=== PATIENT | male | born 1990 | race Caucasian/White ===

== ENCOUNTER 2025-04-28 01:02 | Emergency (ER) | payer OTHER, SELFPAY ==
--- NOTE | ~2025-04-28 | XR_ITS ---
EXAMINATION: XR chest 2V, 04/28/2025 1:41 CDT HISTORY: SOB COMPARISON: No comparisons available. Technique: 2 views obtained. Findings: The lungs are clear, no effusion. No pneumothorax. Heart is normal size. Mediastinal and hilar contours are within normal limits. Bony thorax no acute abnormality. Impression: No acute cardiopulmonary abnormality. Reviewed, dictated and finalized at location A. Impression: No acute cardiopulmonary abnormality.
--- NOTE | 2025-04-28 01:06 | ECG_ITS ---
Test Date: 2025-04-28 01:15:17 Measurements Intervals [place] Rate: 93 P: 67 TX: 173 QRS: 48 QRSD: 85 T: 54 QT: 344 QTc: 428 Interpretive Statements SINUS RHYTHM NONSPECIFIC T-WAVE ABNORMALITY ABNORMAL ECG No previous ECG available for comparison Electronically Signed On 04-28-2025 09:46:56 CDT by Levi Rand M.D.
[2025-04-28 01:07] VITALS: BP 170/100; PULSE 86; RESP 18; TEMP 36.8; O2SAT 100
[2025-04-28 01:29] LABS: Hematocrit 39.9 % (42.0-52.0); Hemoglobin 13.6 g/dL (14.0-18.0); Immature Granulocyte Percent A 0.4 % (0-0.5); Lymphocytes Absolute Auto 3.32 K/mm3 (0.9-3.2); Mean Corpuscular HGB Conc 34.1 g/dl (32-36); Mean Corpuscular Hemoglobin 28.5 pg (26-34); Mean Corpuscular Volume 83.6 fl (80-100); Nucleated Red Blood Cells Absolute Auto 0.000 K/mm3 (0.0-0.012); Nucleated Red Blood Cells Perc 0.0 % (0.0-0.2); Platelet Count Result 228 k/mm3 (150-375); Red Blood Count 4.77 M/mm3 (4.6-6.20); White Blood Count 8.1 K/mm3 (4.5-10.0)
[2025-04-28 01:41] LABS: Alanine Aminotransferase 32 U/L (6-50); Albumin Level 4.7 g/dL (3.5-5.1); Alkaline Phosphatase 69 U/L (38-126); Anion Gap 10 mmol/L (4-12); Aspartate Amino Transferase 26 U/L (17-59); Bilirubin,Total 0.3 mg/dL (0.2-1.3); Blood Urea Nitrogen 24 mg/dL (9-20); Calcium 8.9 mg/dL (8.4-10.2); Carbon Dioxide 25 mmol/L (22-30); Chloride 104 mmol/L (98-107); Estimated CRCL calculation 84 ml/min; Estimated Glomerular Filt Rate > 60; Glucose 113 mg/dL (65-110); Potassium 3.4 mmol/L (3.4-5.0); Sodium 139 mmol/L (137-145); Total Protein 7.7 g/dL (6.3-8.2)
[2025-04-28 01:52] LABS: Troponin I < 0.012 ng/mL (0.000-0.034)
[2025-04-28 03:56] VITALS: PULSE 77
--- OUTSIDE RECORDS SUMMARY | 2025-04-28 05:00 | XMS_ITS | Clinical Summary ---
Author Organization [facility] Address [address] [place] [address] Care Team Providers Care Laboratory Miller Name Role Phone Unknown, Notinfile Primary Care Provider Unavail able Allergies No known active allergies Medications loratadine (CLARITIN) 10 mg tablet Take 10 mg by mouth as needed 9 Active ondansetron ODT (ZOFRAN-ODT) 4 mg disintegrating tablet Take 4 mg by mouth as needed 9 Active naproxen sodium 220 mg capsule Take by mouth Active escitalopram (LEXAPRO) 10 mg tablet Take 10 mg by mouth daily Active sertraline (ZOLOFT) 50 mg tablet TK 1 T PO QD 0 Active Active Problems Problem Noted Date Diagnosed Date Diarrhea 06/11/2019 Overview (06/11/2019): Added automatically from request for surgery [id number] Diarrhea of presumed infectious origin 9 Assessment & Plan (07/17/2019 1:23 PM FURNITURE RENTAL CONSULTANT): Have reviewed with him all the labs and endo and biopsy findings and the fact that all are normal indicating ibs-d. His diet is erratic and no breakfast and he is pretty hi strung. Suggested we begin with hi fiber diet and if that fails consider trying meds. Return prn Assessment & Plan (05/08/2019 2:11 PM CDT): Ending 10 yrs in the and spent 6 mos in [employer] 04/01-10/03. C/o morning urgency with numerous loose stools and also less severe in the afternoon. No nocturnal. Living and eating on the [place]. Brought in labs and blood all normal but stool possible shigella. Will repeat bacterial pathogens, O-P, C Dif and then proceed. 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 Patellar tendinitis 08/20/2015 Surgical History Surgery Date Site/Laterality Comments KNEE SURGERY 08/15/2016 - 08/14/2017 Bilateral KNEE DEBRIDEMENT 10/14/2015 - 11/13/2015 Left left knee debridement KNEE DEBRIDEMENT 06/15/2016 - 07/14/2016 Right rt knee debridement COLONOSCOPY 07/10/2019 Medical History Medical History Date Comments Depression anxiety Chronic diarrhea since 06/2018 Family History Medical History Relation Name Comments Cancer Father Family history of malignant neoplasm - (Added by TW Conv) Hypertension Father Relation Name Status Comments Father Social History Tobacco Use Types Packs/Day Years Used Date Smoking Tobacco: Never Smokeless Tobacco: Never Alcohol Use Standard Drinks/Week Comments Yes 0 (1 standard drink = 0.6 oz pur e alcohol) occasionally PHQ-2 Answer Date Recorded PHQ-2 Score 0 07/17/2019 Personal Safety Answer Date Recorded Getting School Help Needed Not on file 10/27 Sex and Gender Information Value Date Recorded Sex Assigned at Not on file Legal Sex Male 6:45 AM FURNITURE RENTAL CONSULTANT Gender Identity Not on file Sexual Orientation Not on file Obstetrics History Last Filed Vital Signs Vital Sign Reading Time Taken Comments Blood Pressure 130/80 06/22/2020 10:08 AM FURNITURE RENTAL CONSULTANT Pulse 75 06/22/2020 10:09 AM FURNITURE RENTAL CONSULTANT righ t Temperature 36.3 C (97.3 F) 06/22/2020 10:08 AM FURNITURE RENTAL CONSULTANT Respiratory Rate 16 06/22/2020 10:08 AM FURNITURE RENTAL CONSULTANT Oxygen Saturation 97% 06/22/2020 10:09 AM FURNITURE RENTAL CONSULTANT right Inhaled Oxygen Concentration - - Weight 90.7 kg (200 lb) 06/22/2020 10:08 AM FURNITURE RENTAL CONSULTANT Height 182.9 cm (6') 06/22/2020 10:08 AM FURNITURE RENTAL CONSULTANT Body Mass Index 27.12 06/22/2020 10:08 AM FURNITURE RENTAL CONSULTANT Plan of Treatment [place] [address] [facility] CLAIMS Advance Directives For more information, please contact: [phone] * Full Code (Latest Code Status on File) Date Activated Date Inactivated Comments 07/10/2019 7:53 AM 07/10/2019 2:29 PM * Full Code Date Activated Date Inactivated Comments 07/10/2019 7:53 AM 07/10/2019 7:53 AM Care Teams Laboratory Miller Relationship Specialty Start Date End Date Unknown, Notinfile PCP - General 07/10/19
--- OUTSIDE RECORDS SUMMARY | 2025-04-28 05:00 | XMS_ITS | Clinical Summary ---
Author Organization [facility] Address [address] [facility] [address] [facility] [place] [address] Care Team Providers Care Can Capper Name Role Phone Lenard Alves Primary Care Provider [phone] OsmarKvng chavez Shabana PAC Unavailable [phone] Allergies No known active allergies Medications famotidine (PEPCID) 20 MG Tablet Take 20 mg by mouth 2 times daily. Active sertraline (ZOLOFT) 100 MG Tablet Take 100 mg by mouth daily. Active Active Problems No known active problems Family History Medical History Relation Name Comments Cancer Paternal Grandfather Relation Name Status Comments Paternal Grandfather Social History Tobacco Use Types Packs/Day Years Used Date Smoking Tobacco: Never Smokeless Tobacco: Never Alcohol Use Standard Drinks/Week Comments Yes 0 (1 standard drink = 0.6 oz pur e alcohol) occasional Sex and Gender Information Value Date Recorded Sex Assigned at Not on file Legal Sex Male 1:41 PM CDT Gender Identity Not on file Sexual Orientation Not on file Last Filed Vital Signs Vital Sign Reading Time Taken Comments Blood Pressure 138/78 01/24/2024 1:00 PM CDT Pulse 75 01/24/2024 1:00 PM CDT Temperature 36.1 C (97 F) 01/24/2024 1:00 PM CDT Respiratory Rate 14 01/24/2024 1:00 PM CDT Oxygen Saturation 98% 01/24/2024 1:00 PM CDT Inhaled Oxygen Concentration - - Weight 96.2 kg (212 lb) 01/24/2024 1:00 PM CDT Height 182.9 cm (6') 01/24/2024 1:00 PM CDT Body Mass Index 28.75 01/24/2024 1:00 PM CDT Plan of Treatment Health Maintenance Due Date Last Done Comments Hepatitis C Virus (HCV) Screening 1989 Hepatitis B Immunization (1 of 3 - 19+ 3-dose series) 2008 Human Papillomavirus (HPV) Immunization (3 - Male 3-dose series) 08/13/2014 05/21/2014, 01/08/2014 Influenza Immunization (#1) 04/15/202506/16, 07/23/2022, 06/30/2021, Additional history exists SARS-COV-2 Immunization ( season) 2025 07/23/2022, 10/03/2020, 09/04/2020 Respiratory Syncytial Virus (RSV) Immunization (Adult) (1 - 1-dose 75+ series) 2064 Meningococcal Immunization (ACWY) Aged Out 05/30/2009 No longer eligible based on patient's age to complete this topic TdaP Immunization Completed 05/30/2009 Pneumococcal Immunization Combined Aged Out No longer eligible based on patient's age to complete this topic Rotavirus Immunization Aged Out No lo nger eligible based on patient's age to complete this topic Insurance [facility] Care Teams Can Capper Relationship Specialty Start Date End Date Long Lenard [address] [id number] PCP - General Family Medicine 01/17/24 Kvng Prasad PAC [address] [id number] Physician Locker Room Supervisor Physician Locker Room Supervisor 01/17/24
--- OUTSIDE RECORDS SUMMARY | 2025-04-28 05:00 | XMS_ITS | Clinical Summary ---
Author Organization [facility] Address [address] [place] [address] Care Team Providers Care Violin Repairer Name Role Phone Unavailable Primary Care Provider Unavailabl e Social History Tobacco Use Types Packs/Day Years Used Date Smoking Tobacco: Never Assessed Sex and Gender Information Value Date Recorded Sex Assigned at Not on file Legal Sex Male 8:36 PM CDT Gender Identity Not on file Sexual Orientation Not on file Plan of Treatment Health Maintenance Due Date Last Done Comments Annual Physical 1992 Hepatitis C 2007 DTaP, Tdap and Td Vaccines ( 1 - Tdap) 2008 Hepatitis B Vaccines (1 of 3 - 19+ 3-dose series) 2008 HPV Vaccines (1 - 3-dose SCD M series) 2016 COVID-19 Vaccine (1 - 2023-2 5 season) 2025 Meningococcal B Vaccine Aged Out No l onger eligible based on patient's age to complete this topic Meningococcal Vaccine Aged Out No quang jluis eligible based on patient's age to complete this topic Pneumococcal Vaccine: Pediat rics (0 to 5 Years) and At-Risk Patients (6 to 49 Years) Aged Out No longer eligible b ased on patient's age to complete this topic RSV Immunizations Under 20 Months Aged Out No longer eligible based on patient's age to complete this topic
--- NOTE | 2025-04-28 05:09 | ED_ITS ---
HPI - General Adult General Chief complaint: Unspecified Stated complaint: SOB, heart feels odd. lightheaded Time Seen by Provider: 04/28/25 04:12 History of Present Illness HPI narrative: Patient is a 35-year-old male who presents emergency department this evening complaining of heart palpitations that occurred while he was trying to go to sleep. Patient states that he felt like his heart was beating heavy. Patient states that during this episode he felt slightly short of breath. States the symptoms have now resolved. Patient was noted to have an elevated blood pressure in triage and when asked about this he states that he was told that he may have hypertension but was never worked up. Denies any active chest pain. No additional symptoms or concerns at this time. Related Data Allergies Allergy/AdvReac Type Severity Reaction Status Date / Time No Known Allergies Allergy Verified 04/28/25 01:10 Review of Systems 2 Review of Systems: All systems are reviewed and are negative unless stated otherwise in the HPI. Exam 2 Narrative: General: Alert, awake, afebrile, in no acute distress. HEENT: PERRL, no rhinorrhea, no post nasal drip, oropharynx clear. Neck: Trachea midline, no JVD, no lymphadenopathy. Cardiovascular: Regular rate and rhythm, no murmurs, rubs or gallops, no peripheral edema. Respiratory: Clear to auscultation bilaterally, no tachypnea, no wheezing, no rhonchi, no rubs, no respiratory distress. Abdomen: Soft, nontender, nondistended, no rebound, no guarding, no peritoneal signs. Musculoskeletal: No joint swelling or deformity, normal muscle tone. Skin: No rashes or petechia, no signs of infection. Psychiatric: Alert and oriented, normal behavior and judgment for situation. Neurological: Alert and oriented to person, place, and time. Follows all commands. No focal deficits, speech is clear and fluent. Course Vital Signs Vital signs: Vital Signs Temperature 98.2 F 04/28/25 01:07 Pulse Rate 86 04/28/25 01:07 Respiratory Rate 18 04/28/25 01:07 Blood Pressure 170/100 H 04/28/25 01:07 Pulse Oximetry 100 04/28/25 01:07 Oxygen Delivery Room Air 04/28/25 01:07 Temperature 98.2 F 04/28/25 01:07 Pulse Rate 77 04/28/25 03:56 Respiratory Rate 18 04/28/25 01:07 Blood Pressure 170/100 H 04/28/25 01:07 Pulse Oximetry 100 04/28/25 01:07 Oxygen Delivery Room Air 04/28/25 01:07 Medical Decision Making MDM Narrative Medical decision making narrative: The patient was evaluated by myself in the emergency department. History is obtained from patient who is an independent historian and physical exam was performed. External medical records were reviewed at this time. IV was established and pertinent tests were ordered. EKG was obtained which revealed sinus rhythm rate of 93 beats per minute otherwise no evidence of arrhythmia or acute ischemia. EKG was independently interpreted by me and is currently pending official cardiology read. Laboratory results obtained revealing no acute process. Troponin negative. Imaging studies obtained included CXR which was independently interpreted by me revealing no acute process, which is pending final radiology interpretation. Differential diagnosis considerations include arrhythmia, electrolyte derangements, acute viral syndrome, hypertensive urgency versus emergency, acute stress reaction, anxiety, dehydration. Comorbidities impacting this visit include none. I have evaluated and discussed social determinants of health with the patient that could potentially impact subsequent diagnosis and treatment plans. On repeat assessment of the patient, reevaluation revealed that the patient is doing well and is in no acute distress. Patient symptoms have improved since he arrived to our emergency department. Repeat vital signs were all reviewed and noted to be stable with current blood pressure of 156/86 mmHg. Patient was not administered any antihypertensive in the emergency department and was informed that he needs to monitor this closely as he may need to be placed on blood pressure medications if his blood pressure is persistently elevated. Differential diagnosis and treatment plan were discussed with the patient at bedside. Patient agrees with discussion and after shared medical decision making agrees with discharge. All questions were answered to the patient's satisfaction. Patient will follow up with his PCP in 3-5 days. He was also provided with a Cardiology referral instructed to call to set up a follow-up appointment if he continues to have these episodes of palpitations he may need to be fitted for a Holter monitor. Patient was provided with strict return precautions and instructed to return to the emergency department if any new or worsening symptoms develop. The patient was discharged in stable condition. Vital Signs Vital Signs: Vital Signs Temperature 98.2 F 04/28/25 01:07 Pulse Rate 86 04/28/25 01:07 Respiratory Rate 18 04/28/25 01:07 Blood Pressure 170/100 H 04/28/25 01:07 Pulse Oximetry 100 04/28/25 01:07 Oxygen Delivery Room Air 04/28/25 01:07 Temperature 98.2 F 04/28/25 01:07 Pulse Rate 77 04/28/25 03:56 Respiratory Rate 18 04/28/25 01:07 Blood Pressure 170/100 H 04/28/25 01:07 Pulse Oximetry 100 04/28/25 01:07 Oxygen Delivery Room Air 04/28/25 01:07 Lab Data 04/28/25 01:22 04/28/25 01:22 Labs: Lab Results 04/28/25 Range/Units 01:22 WBC 8.1 (4.5-10.0) K/mm3 RBC 4.77 (4.6-6.20) M/mm3 Hgb 13.6 L (14.0-18.0) g/dL Hct 39.9 L (42.0-52.0) % MCV 83.6 (80-100) fl MCH 28.5 (26-34) pg MCHC 34.1 (32-36) g/dl RDW 12.9 (11.5-14.5) % Plt Count 228 (150-375) k/mm3 MPV 10.4 (7.4-10.4) fl Immature Gran % (Auto) 0.4 (0-0.5) % Neut % (Auto) 47.4 (45.5-73.1) % Lymph % (Auto) 41.0 (18.3-44.2) % Richardson % (Auto) 6.7 (2.6-8.5) % Eos % (Auto) 4.0 (0-4.4) % Baso % (Auto) 0.5 (0.2-1.2) % Lymph # (Auto) 3.32 H (0.9-3.2) K/mm3 Richardson # (Auto) 0.5 (0.1-0.6) K/mm3 Eos # (Auto) 0.3 (0-0.3) K/mm3 Baso # (Auto) 0.0 (0.0-0.1) K/mm3 Abs Immat Gran (auto) 0.03 (0.00-0.031) K/mm3 Absolute Neuts (auto) 3.9 (1.3-6.7) K/mm3 Absolute Nucleated RBC 0.000 (0.0-0.012) K/mm3 Nucleated RBC % 0.0 (0.0-0.2) % Sodium 139 (137-145) mmol/L Potassium 3.4 (3.4-5.0) mmol/L Chloride 104 (98-107) mmol/L Carbon Dioxide 25 (22-30) mmol/L Anion Gap 10 (4-12) mmol/L BUN 24 H (9-20) mg/dL Creatinine 1.19 (0.7-1.3) mg/dL Estim Creat Clear Calc 84 ml/min Estimated GFR > 60 (59 - ) Glucose 113 H (65-110) mg/dL Calcium 8.9 (8.4-10.2) mg/dL Total Bilirubin 0.3 (0.2-1.3) mg/dL AST 26 (17-59) U/L ALT 32 (6-50) U/L Alkaline Phosphatase 69 (38-126) U/L Troponin I < 0.012 (0.000-0.034) ng/mL Total Protein 7.7 (6.3-8.2) g/dL Albumin 4.7 (3.5-5.1) g/dL Discharge Plan Discharge Clinical Impression: Heart palpitations, Hypertension Patient Disposition: Home Condition: Improved Instructions: Antibiotic Form, Heart Palpitations (DC), Hypertension (ED) Additional Instructions: Please follow-up with your family doctor within the next 3-5 days. Return to the ED if any new or worsening symptoms develop. Your provided with a Cardiology referral instructed to call to set up a follow-up appointment regarding your palpitations. You also instructed to keep a blood pressure log and to monitor your blood pressure daily at as he may be developing hypertension and this needs to be addressed with your primary care physician. Patient Language: Arabic Follow-up/Referrals: Levi Rand MD [Physician, Cardiology] - 3 Days Lenard Alves MD [Primary Care Provider, Family Practice] - 1 Week Time of Disposition: 05:11
[2025-04-28 05:19] VITALS: BP 148/78; PULSE 87; RESP 18; O2SAT 99
== END 2025-04-28 05:20 | disposition home or self-care (01) ==
PROVIDERS: Emergency Provider Emergency Medicine; PCP Emergency Medicine
DX: R00.2 Palpitations (principal); I10 Essential (primary) hypertension; R94.31 Abnormal electrocardiogram [ECG] [EKG]
CPT/HCPCS: 36415; 71046; 80053; 84484; 85025; 93005; 99284

== ENCOUNTER 2025-05-13 07:31 | Outpatient (CLI) | payer OTHER, SELFPAY ==
--- NOTE | ~2025-05-13 | NM_ITS ---
EXAM: NM gastric emptying study DATE: 05/13/2025 12:43 INDICATION: Gastroesophageal reflux disease without esophagitis TECHNIQUE: A gastric emptying study was performed using the methodology of Bijan ELAM, et al. J Nucl Med 2007; 48:568-572. The patient was given a meal consisting of 2 scrambled eggs labeled with 1.1 mCi Tc-99m sulfur colloid, 2 slices of toast, two packages of jam, and approximately 120 mL of water. Simultaneous anterior and posterior 1-min images of the abdomen were obtained with the patient supine at multiple time points over a total period of 4 hours. The geometric mean of anterior and posterior views was determined, and the percentage retention was calculated for each time point. COMPARISON: None. FINDINGS: Gastric retention of the radiotracer-labeled meal was 91%, 80%, and 20% at the 1-hour, 2-hour, and 4-hour time points, respectively. With this technique, apparent rapid gastric emptying is suggested by <30% gastric retention at 1 hour. Delayed gastric emptying is defined by gastric retention of >90% at 1 hour, >60% retention at 2 hours, or >10% retention at 4 hours. IMPRESSION: 1. Delayed gastric emptying. Reviewed, dictated and finalized at location A.
--- OUTSIDE RECORDS SUMMARY | 2025-05-13 07:34 | XMS_ITS | Clinical Summary ---
Author Organization [facility] Address [address] [place] [address] Care Team Providers Care Manager Fire Name Role Phone Unavailable Primary Care Provider [...]
--- OUTSIDE RECORDS SUMMARY | 2025-05-13 07:34 | XMS_ITS | Clinical Summary ---
Author Organization [facility] Address [address] [place] [address] Care Team Providers Care Sponge Hooker Name Role Phone Unknown, Notinfile Primary Care [...] (06/11/2019): Added automatically from request for surgery [id number] Diarrhea of presumed infectious origin 9 Assessment & Plan (07/17/2019 1:23 PM DEPARTMENT TRAFFIC FREIGHT ROUTER): Have reviewed with him all the labs [...] in the and spent 6 mos in [employer] 04/01-10/03. C/o morning urgency with numerous loose stools and also less severe in the afternoon. No nocturnal. Living and eating on the [place]. Brought in labs and blood all normal [...] on file Legal Sex Male 6:45 AM DEPARTMENT TRAFFIC FREIGHT ROUTER Gender Identity Not on file Sexual Orientation Not on file Obstetrics History Last Filed Vital Signs Vital Sign Reading Time Taken Comments Blood Pressure 130/80 06/22/2020 10:08 AM DEPARTMENT TRAFFIC FREIGHT ROUTER Pulse 75 06/22/2020 10:09 AM DEPARTMENT TRAFFIC FREIGHT ROUTER righ t Temperature 36.3 C (97.3 F) 06/22/2020 10:08 AM DEPARTMENT TRAFFIC FREIGHT ROUTER Respiratory Rate 16 06/22/2020 10:08 AM DEPARTMENT TRAFFIC FREIGHT ROUTER Oxygen Saturation 97% 06/22/2020 10:09 AM DEPARTMENT TRAFFIC FREIGHT ROUTER right Inhaled Oxygen Concentration - - Weight 90.7 kg (200 lb) 06/22/2020 10:08 AM DEPARTMENT TRAFFIC FREIGHT ROUTER Height 182.9 cm (6') 06/22/2020 10:08 AM DEPARTMENT TRAFFIC FREIGHT ROUTER Body Mass Index 27.12 06/22/2020 10:08 AM DEPARTMENT TRAFFIC FREIGHT ROUTER Plan of Treatment [place] [address] [facility] CLAIMS Advance Directives For more information, please contact: [phone] * Full Code (Latest Code Status on File) Date Activated Date Inactivated Comments 07/10/2019 7:53 AM 07/10/2019 2:29 PM * Full Code Date Activated Date Inactivated Comments 07/10/2019 7:53 AM 07/10/2019 7:53 AM Care Teams Sponge Hooker Relationship Specialty Start Date End Date Unknown, Notinfile PCP - General 07/10/19
--- OUTSIDE RECORDS SUMMARY | 2025-05-13 07:35 | XMS_ITS | Clinical Summary ---
Author Organization [facility] Address [address] [facility] [address] [facility] [place] [address] Care Team Providers Care Pediatric Neuropsychologist Name Role Phone Lenard Alves Primary Care Provider [phone] OsmarKvng chavez Shabana PAC Unavailable [phone] Allergies No known active allergies Medications famotidine [...] patient's age to complete this topic Insurance [facility] Care Teams Pediatric Neuropsychologist Relationship Specialty Start Date End Date Long Lenard [address] [address] PCP - General Family Medicine 01/17/24 Kvng Prasad PAC [address] [id number] Physician Package Car Driver Physician Package Car Driver 01/17/24
== END 2025-05-13 07:32 | disposition home or self-care (01) ==
PROVIDERS: PCP Emergency Medicine; Visit Provider Emergency Medicine
DX: K21.9 Gastro-esophageal reflux disease without esophagitis (principal); K30 Functional dyspepsia
CPT/HCPCS: 78264; A9541

== ENCOUNTER 2025-05-19 16:03 | Emergency (ER) | payer OTHER, SELFPAY ==
--- NOTE | ~2025-05-19 | CT_ITS ---
Edward Rogel EXAMINATION: CT abdomen pelvis w con COMPARISON: None HISTORY: epigastric pain TECHNIQUE: Axial images were obtained through the abdomen, pelvis post administration of IV contrast. Oral contrast was also administered. Coronal reconstruction images were obtained from the axial views. CT scan performed using dose optimization techniques including the following automated exposure control; adjustment of mA and/or kV; use of iterative reconstruction technique. Automatic exposure control was used to reduce radiation dose. Permanent radiation dose record is archived to PACS. FINDINGS: CT abdomen: LUNG BASES: The lung bases are clear. The visualized portions of the heart and pericardium are unremarkable. LIVER: Mild hepatic steatosis. SPLEEN: Unremarkable. KIDNEYS: Right Kidney: Unremarkable. No calculi. No hydronephrosis. Left Kidney: Unremarkable. No calculi. No hydronephrosis ADRENAL GLANDS: Unremarkable. PANCREAS: Unremarkable. GALLBLADDER/BILIARY: Unremarkable. No biliary dilatation. STOMACH AND ESOPHAGUS: Small hiatal hernia. BOWEL/MESENTERY: Moderate fecal content, no colitis or diverticulitis. Appendix normal. Mesentery normal. No dilated small bowel loops. ADENOPATHY/RETROPERITONEUM: No lymphadenopathy. AORTA/VASCULATURE: Normal caliber aorta. FREE FLUID OR FREE AIR: No free fluid.. CT pelvis: SOLID ORGANS/REPRODUCTIVE: Unremarkable. BLADDER: Mild circumferential thickening noted of the bladder wall. OSSEOUS STRUCTURES: No acute osseous abnormality.No suspicious lesions. OVERLYING SOFT TISSUES: There is small fat-containing umbilical hernia. IMPRESSION: 1. Mild cystitis Reviewed, dictated and finalized at location P. IMPRESSION: 1. Mild cystitis
[2025-05-19 16:05] VITALS: BP 150/99; PULSE 77; RESP 18; TEMP 36.8; O2SAT 98
--- OUTSIDE RECORDS SUMMARY | 2025-05-19 16:05 | XMS_ITS | Clinical Summary ---
Author Organization [facility] Address [address] [facility] [address] [facility] [place] [address] Care Team Providers Care Welder Setter Electron Beam Machine Name Role Phone Lenard Alves Primary Care Provider [phone] OsmarKvng chavez Shabana PAC Unavailable [phone] Allergies No known active allergies Medications famotidine [...] patient's age to complete this topic Insurance [facility] Care Teams Welder Setter Electron Beam Machine Relationship Specialty Start Date End Date Long Lenard [address] [address] PCP - General Family Medicine 01/17/24 Kvng Prasad PAC [address] [id number] Physician Systems Software Developer Physician Systems Software Developer 01/17/24
--- OUTSIDE RECORDS SUMMARY | 2025-05-19 16:05 | XMS_ITS | Clinical Summary ---
Author Organization [facility] Address [address] [place] [address] Care Team Providers Care Cylinder Head Assembler Name Role Phone Unavailable Primary Care Provider [...]
--- OUTSIDE RECORDS SUMMARY | 2025-05-19 16:54 | XMS_ITS | Clinical Summary ---
Author Organization [facility] Address [address] [place] [address] Care Team Providers Care Residential Counselor Name Role Phone Unavailable Primary Care Provider [...]
--- OUTSIDE RECORDS SUMMARY | 2025-05-19 16:54 | XMS_ITS | Clinical Summary ---
Author Organization [facility] Address [address] [facility] [address] [facility] [place] [address] Care Team Providers Care Paint Supervisor Name Role Phone Lenard Alves Primary Care Provider OsmarKvng chavez Shabana PAC Unavailable [phone] Allergies No known active allergies Medications famotidine [...] patient's age to complete this topic Insurance [facility] Care Teams Paint Supervisor Relationship Specialty Start Date End Date Long Lenard [address] [address] PCP - General Family Medicine 01/17/24 Kvng Prasad PAC [address] [address] Physician Mechanic Industrial Truck Physician Mechanic Industrial Truck 01/17/24
[2025-05-19 17:04] LABS: Hematocrit 39.9 % (42.0-52.0); Hemoglobin 13.8 g/dL (14.0-18.0); Immature Granulocyte Percent A 0.5 % (0-0.5); Lymphocytes Absolute Auto 1.81 K/mm3 (0.9-3.2); Mean Corpuscular HGB Conc 34.6 g/dl (32-36); Mean Corpuscular Hemoglobin 28.3 pg (26-34); Mean Corpuscular Volume 81.9 fl (80-100); Nucleated Red Blood Cells Absolute Auto 0.000 K/mm3 (0.0-0.012); Nucleated Red Blood Cells Perc 0.0 % (0.0-0.2); Platelet Count Result 258 k/mm3 (150-375); Red Blood Count 4.87 M/mm3 (4.6-6.20); White Blood Count 8.3 K/mm3 (4.5-10.0)
[2025-05-19] MEDS: SODIUM CHLORIDE 0.9% IV 1,000 ML 999 ML IV CONT (17:10)
[2025-05-19] MEDS: ONDANSETRON INJ 4 MG/2 ML VIAL IV PUSH (17:10)
[2025-05-19 17:18] LABS: Add Urine Microscopic? YES; Appearance Urine Clear (Clear); Glucose Urine UA Negative (Negative); Leukocyte Esterase Ur Trace LEU/UL (Negative); Nitrate Urine Negative (Negative); Non Pathogenic Casts 0-2; Specific Grav Ur 1.017 (1.001-1.035)
[2025-05-19 17:19] LABS: Alanine Aminotransferase 26 U/L (6-50); Albumin Level 4.8 g/dL (3.5-5.1); Alkaline Phosphatase 66 U/L (38-126); Anion Gap 12 mmol/L (4-12); Aspartate Amino Transferase 22 U/L (17-59); Bilirubin,Total 0.5 mg/dL (0.2-1.3); Blood Urea Nitrogen 15 mg/dL (9-20); Calcium 9.4 mg/dL (8.4-10.2); Carbon Dioxide 23 mmol/L (22-30); Chloride 103 mmol/L (98-107); Estimated CRCL calculation 81 ml/min; Estimated Glomerular Filt Rate > 60; Glucose 112 mg/dL (65-110); Lipase 163 U/L (23-300); Potassium 3.4 mmol/L (3.4-5.0); Sodium 138 mmol/L (137-145); Total Protein 7.9 g/dL (6.3-8.2)
--- NOTE | 2025-05-19 18:12 | ED.ABDPAIN ---
HPI - Abdominal Pain General Chief Complaint: Abdominal Pain Stated Complaint: NV, abd pain, not able to keep food down Time Seen by Provider: 05/19/25 16:49 History of Present Illness HPI narrative: Patient is a 35-year-old male who presents ER with nausea vomiting as well as epigastric pain. Reports has been ongoing for 2 and half weeks. He was seen by his PCP and had a gastric emptying study that showed delayed gastric emptying. He is now scheduled to follow-up with GI and hopefully get an endoscopy. Reports he has early satiety. He has been taking Protonix and that has actually began to improve his symptoms but he still gets nauseous when he eats and will vomit. Reports a 12 lb weight loss. Related Data Allergies Allergy/AdvReac Type Severity Reaction Status Date / Time No Known Allergies Allergy Verified 05/19/25 16:56 Review of Systems Review of Systems: All systems reviewed & are unremarkable except as noted in HPI and below Constitutional: Constitutional: Reports no additional constitutional complaints ENT: Reports system reviewed and no additional complaints, except as documented Cardiovascular: Cardiovascular: Reports no additional cardiovascular complaints Respiratory: Respiratory: Reports no additional respiratory complaints Gastrointestinal: Gastrointestinal: Reports no additional gastrointestinal complaints [facility] Past Medical History Medical History (Updated 05/19/25 @ 19:36 by Julio Jennings MD) Healthy adult male Surgical History Surgical History (Updated 05/19/25 @ 18:13 by Julio Jennings MD) No history of previous surgery Exam Narrative: GENERAL: Well-appearing, well-nourished, and in no acute distress. HEAD: Normocephalic, atraumatic. ENT: Mucous membranes moist. CHEST: Clear to auscultation. No respiratory distress. HEART: Regular rate and rhythm. Normal peripheral pulses. ABDOMEN: Soft, nontender, nondistended. EXTREMITIES: Normal range of motion. No edema. SKIN: Warm, dry, no rash. NEURO: Alert and oriented x3. PSYCH: Normal mood and affect. Course Course Emergency Course: Patient resting comfortably. Hydrated. Discussed normal CBC/CMP/UA as well as normal CT scan. The CT did reports cystitis but patient has no symptoms with clear urine so it is essentially negative imaged and is likely showing a decompressed bladder. Vital Signs Vital signs: Vital Signs Temperature 98.3 F 05/19/25 16:05 Pulse Rate 77 05/19/25 16:05 Respiratory Rate 18 05/19/25 16:05 Blood Pressure 150/99 H 05/19/25 16:05 Pulse Oximetry 98 05/19/25 16:05 Oxygen Delivery Room Air 05/19/25 16:05 Temperature 98.3 F 05/19/25 16:05 Pulse Rate 77 05/19/25 16:05 Respiratory Rate 18 05/19/25 16:05 Blood Pressure 150/99 H 05/19/25 16:05 Pulse Oximetry 98 05/19/25 16:05 Oxygen Delivery Room Air 05/19/25 16:05 MDM - Abdominal Pain Lab Data 05/19/25 16:58 05/19/25 16:58 Labs: Lab Results 05/19/25 05/19/25 Range/Units 16:58 17:03 WBC 8.3 (4.5-10.0) K/mm3 RBC 4.87 (4.6-6.20) M/mm3 Hgb 13.8 L (14.0-18.0) g/dL Hct 39.9 L (42.0-52.0) % MCV 81.9 (80-100) fl MCH 28.3 (26-34) pg MCHC 34.6 (32-36) g/dl RDW 12.5 (11.5-14.5) % Plt Count 258 (150-375) k/mm3 MPV 10.4 (7.4-10.4) fl Immature Gran % (Auto) 0.5 (0-0.5) % Neut % (Auto) 69.5 (45.5-73.1) % Lymph % (Auto) 21.8 (18.3-44.2) % Dodge % (Auto) 5.5 (2.6-8.5) % Eos % (Auto) 2.1 (0-4.4) % Baso % (Auto) 0.6 (0.2-1.2) % Lymph # (Auto) 1.81 (0.9-3.2) K/mm3 Dodge # (Auto) 0.5 (0.1-0.6) K/mm3 Eos # (Auto) 0.2 (0-0.3) K/mm3 Baso # (Auto) 0.1 (0.0-0.1) K/mm3 Abs Immat Gran (auto) 0.04 H (0.00-0.031) K/mm3 Absolute Neuts (auto) 5.8 (1.3-6.7) K/mm3 Absolute Nucleated RBC 0.000 (0.0-0.012) K/mm3 Nucleated RBC % 0.0 (0.0-0.2) % Sodium 138 (137-145) mmol/L Potassium 3.4 (3.4-5.0) mmol/L Chloride 103 (98-107) mmol/L Carbon Dioxide 23 (22-30) mmol/L Anion Gap 12 (4-12) mmol/L BUN 15 D (9-20) mg/dL Creatinine 1.23 (0.7-1.3) mg/dL Estim Creat Clear Calc 81 ml/min Estimated GFR > 60 (59 - ) Glucose 112 H (65-110) mg/dL Calcium 9.4 (8.4-10.2) mg/dL Total Bilirubin 0.5 (0.2-1.3) mg/dL AST 22 (17-59) U/L ALT 26 (6-50) U/L Alkaline Phosphatase 66 (38-126) U/L Total Protein 7.9 (6.3-8.2) g/dL Albumin 4.8 (3.5-5.1) g/dL Lipase 163 (23-300) U/L Urine Color Yellow (Yellow) Urine Appearance Clear (Clear) Urine pH 5.5 (5.0-9.0) Ur Specific Leon 1.017 (1.001-1.035) Urine Protein Negative (Negative) mg/dL Urine Glucose (UA) Negative (Negative) mg/dL Urine Ketones Negative (Negative) mg/dL Ur Blood (Man) Negative (Negative) Urine Nitrate Negative (Negative) Urine Bilirubin Negative (Negative) Urine Urobilinogen 0.2 (<2.0) mg/dL Leukocyte Esterase Rfl Trace H (Negative) MICHELLE/UL Urine RBC 0-2 (0-2) /hpf Urine WBC 0-5 (0-3) /hpf Ur Squamous Epith Cells None seen (Few) /hpf Urine Bacteria None seen /hpf Urine Casts 0-2 Imaging Data Radiologist's impression: ITS Impressions Abdomen/Pelvis CT 05/19/25 18:23 IMPRESSION: 1. Mild cystitis Discharge Plan Discharge Clinical Impression: Gastroparesis Patient Disposition: Home Condition: Stable Instructions: Gastroparesis (ED) Additional Instructions: Return to the emergency department if you develop severe abdominal pain, severe nausea and vomiting to the point where you are unable to keep down fluids, if you develop chest pain or difficulty breathing, blood in your stool, dizziness or fainting, or if you develop any other new or concerning symptoms as these could be signs of more serious medical illness. Try to stay well hydrated. Patient Language: Turkmen Prescriptions: New metoclopramide HCl 10 mg tablet 10 mg PO Q6H PRN (Reason: nausea and vomiting) Qty: 14 0RF Follow-up/Referrals: Lenard Alves MD [Primary Care Provider, Family Practice] - 1 Week
[2025-05-19 19:47] VITALS: BP 134/87; PULSE 70; RESP 15; O2SAT 99
== END 2025-05-19 19:48 | disposition home or self-care (01) ==
PROVIDERS: Emergency Provider Emergency Medicine; PCP Emergency Medicine
DX: K31.84 Gastroparesis (principal)
CPT/HCPCS: 36415; 74177; 80053; 81001; 83690; 85025; 96361; 96374; 99284; J2405; J7030; Q9967

== ENCOUNTER 2025-05-30 09:37 | Outpatient (CLI) | payer OTHER, SELFPAY ==
[2025-05-30 10:35] LABS: Hematocrit 40.5 % (42.0-52.0); Hemoglobin 13.9 g/dL (14.0-18.0); Mean Corpuscular HGB Conc 34.3 g/dl (32-36); Mean Corpuscular Hemoglobin 28.4 pg (26-34); Mean Corpuscular Volume 82.8 fl (80-100); Platelet Count Result 243 k/mm3 (150-375); Red Blood Count 4.89 M/mm3 (4.6-6.20); White Blood Count 5.0 K/mm3 (4.5-10.0)
--- OUTSIDE RECORDS SUMMARY | 2025-05-30 10:39 | XMS_ITS | Clinical Summary ---
Author Organization [facility] Address [address] [place] [address] Care Team Providers Care Physician In Private Practice Name Role Phone Unavailable Primary Care Provider [...] Vaccine (1 - 2023-2 5 season) 2025 Influenza Adult (#1) 2025 Meningococcal B Vaccine Aged Out No [...]
--- OUTSIDE RECORDS SUMMARY | 2025-05-30 10:39 | XMS_ITS | Clinical Summary ---
Author Organization [facility] Address [address] [place] [address] Care Team Providers Care Tester Food Products Name Role Phone Unknown, Notinfile Primary Care [...] (06/11/2019): Added automatically from request for surgery [id number] Diarrhea of presumed infectious origin 9 Assessment & Plan (07/17/2019 1:23 PM LUNG GUN OPERATOR): Have reviewed with him all the labs [...] in the and spent 6 mos in [employer] 04/01-10/03. C/o morning urgency with numerous loose stools and also less severe in the afternoon. No nocturnal. Living and eating on the [employer]. Brought in labs and blood all normal [...] on file Legal Sex Male 6:45 AM LUNG GUN OPERATOR Gender Identity Not on file Sexual Orientation Not on file Obstetrics History Last Filed Vital Signs Vital Sign Reading Time Taken Comments Blood Pressure 130/80 06/22/2020 10:08 AM LUNG GUN OPERATOR Pulse 75 06/22/2020 10:09 AM LUNG GUN OPERATOR righ t Temperature 36.3 C (97.3 F) 06/22/2020 10:08 AM LUNG GUN OPERATOR Respiratory Rate 16 06/22/2020 10:08 AM LUNG GUN OPERATOR Oxygen Saturation 97% 06/22/2020 10:09 AM LUNG GUN OPERATOR right Inhaled Oxygen Concentration - - Weight 90.7 kg (200 lb) 06/22/2020 10:08 AM LUNG GUN OPERATOR Height 182.9 cm (6') 06/22/2020 10:08 AM LUNG GUN OPERATOR Body Mass Index 27.12 06/22/2020 10:08 AM LUNG GUN OPERATOR Plan of Treatment [place] [address] [facility] HMO/PPO Address: [address] [address] [place] [address] [facility] CLAIMS Advance Directives For more information, please contact: [phone] * Full Code (Latest Code Status on File) Date Activated Date Inactivated Comments 07/10/2019 7:53 AM 07/10/2019 2:29 PM * Full Code Date Activated Date Inactivated Comments 07/10/2019 7:53 AM 07/10/2019 7:53 AM Care Teams Tester Food Products Relationship Specialty Start Date End Date Unknown, Notinfile PCP - General 07/10/19
--- OUTSIDE RECORDS SUMMARY | 2025-05-30 10:39 | XMS_ITS | Clinical Summary ---
Author Organization [facility] Address [address] [facility] [address] [facility] [place] [address] Care Team Providers Care Wellness Guide Name Role Phone Lenard Alves Primary Care Provider [phone] OsmarKvng chavez Shabana PAC Unavailable [phone] Allergies No known active allergies Medications famotidine [...] patient's age to complete this topic Insurance [facility] Care Teams Wellness Guide Relationship Specialty Start Date End Date Long Lenard [address] [address] PCP - General Family Medicine 01/17/24 Kvng Prasad PAC [address] [address] Physician Business Transformation Analyst Physician Business Transformation Analyst 01/17/24
[2025-05-30 10:53] LABS: CRP < 0.5 mg/dL (<1.0)
[2025-05-30 19:04] LABS: Iron 59 ug/dL (49-181)
[2025-05-30 19:17] LABS: Percent Iron Saturation 20 % (20-50)
[2025-05-30 19:46] LABS: Thyroid Stimulating Hormone Reflex 0.852 uIU/mL (0.465-4.68)
[2025-05-30 19:48] LABS: Ferritin 204.00 ng/mL (17.9-464)
[2025-05-30 21:16] LABS: Vitamin B12 358.0 pg/mL (239-931)
[2025-05-31 18:08] LABS: Deamidated Gliadin Abs, IgA 5 units (0-19); Deamidated Gliadin Abs, IgG 2 units (0-19); Immunoglobulin A, Qn 194 mg/dL (90-386)
== END 2025-05-30 09:38 | disposition home or self-care (01) ==
LOC: ANHLAB 09:38
PROVIDERS: PCP Emergency Medicine; Visit Provider Nurse Practitioner
DX: K52.9 Noninfective gastroenteritis and colitis, unspecified (principal); D64.9 Anemia, unspecified; K31.84 Gastroparesis; R10.9 Unspecified abdominal pain
CPT/HCPCS: 36415; 82607; 82728; 82746; 82784; 83540; 83550; 84443; 85027; 86140; 86231; 86258

== ENCOUNTER 2025-06-15 09:02 | Day surgery (SDC) | payer OTHER, SELFPAY ==
[2025-06-03 09:28] VITALS: BMI 27.6
[2025-06-04 10:17] VITALS: BMI 27.6
--- OUTSIDE RECORDS SUMMARY | 2025-06-15 09:07 | XMS_ITS | Clinical Summary ---
Author Organization [facility] Address [address] [facility] [address] [facility] [place] [address] Care Team Providers Care Convalescent Sitter Name Role Phone Lenard Alves Primary Care Provider OsmarKvng chavez Shabana PAC Unavailable [phone] Allergies No known active allergies Medications famotidine [...] patient's age to complete this topic Insurance [facility] Care Teams Convalescent Sitter Relationship Specialty Start Date End Date Long Lenard [address] [address] PCP - General Family Medicine 01/17/24 Kvng Prasad PAC [address] [address] Physician Edgerman Physician Edgerman 01/17/24
--- OUTSIDE RECORDS SUMMARY | 2025-06-15 09:07 | XMS_ITS | Clinical Summary ---
Author Organization [facility] Address [address] [place] [address] Care Team Providers Care Cannoneer Name Role Phone Unknown, Notinfile Primary Care [...] (06/11/2019): Added automatically from request for surgery [id number] Diarrhea of presumed infectious origin 9 Assessment & Plan (07/17/2019 1:23 PM BRANCH ACCOUNT MANAGER): Have reviewed with him all the labs [...] in the and spent 6 mos in [place] 04/01-10/03. C/o morning urgency with numerous loose stools and also less severe in the afternoon. No nocturnal. Living and eating on the [email or web address]. Brought in labs and blood all normal [...] on file Legal Sex Male 6:45 AM BRANCH ACCOUNT MANAGER Gender Identity Not on file Sexual Orientation Not on file Obstetrics History Last Filed Vital Signs Vital Sign Reading Time Taken Comments Blood Pressure 130/80 06/22/2020 10:08 AM BRANCH ACCOUNT MANAGER Pulse 75 06/22/2020 10:09 AM BRANCH ACCOUNT MANAGER righ t Temperature 36.3 C (97.3 F) 06/22/2020 10:08 AM BRANCH ACCOUNT MANAGER Respiratory Rate 16 06/22/2020 10:08 AM BRANCH ACCOUNT MANAGER Oxygen Saturation 97% 06/22/2020 10:09 AM BRANCH ACCOUNT MANAGER right Inhaled Oxygen Concentration - - Weight 90.7 kg (200 lb) 06/22/2020 10:08 AM BRANCH ACCOUNT MANAGER Height 182.9 cm (6') 06/22/2020 10:08 AM BRANCH ACCOUNT MANAGER Body Mass Index 27.12 06/22/2020 10:08 AM BRANCH ACCOUNT MANAGER Plan of Treatment [place] [address] [facility] CLAIMS Advance Directives For more information, please contact: [phone] * Full Code (Latest Code Status on File) Date Activated Date Inactivated Comments 07/10/2019 7:53 AM 07/10/2019 2:29 PM * Full Code Date Activated Date Inactivated Comments 07/10/2019 7:53 AM 07/10/2019 7:53 AM Care Teams Cannoneer Relationship Specialty Start Date End Date Unknown, Notinfile PCP - General 07/10/19
[2025-06-15 09:25] VITALS: BMI 26.5
[2025-06-15] MEDS: SIMETHICONE ORAL SUSPENSION 20 MG/0.3 ML 30 ML BOTTLE 1.8 ML PO (09:32)
--- NOTE | 2025-06-15 09:41 | WPDANESEPPF ---
Anes - Initial Pre Proc Eval Procedure: Operation Date: 06/15/25 10:30 Proposed Procedures p EGD & Diagnostic Colonoscopy - Alonso Pathak MD Date/Time: 06/15/25 09:41 Surgeon: Alonso Pathak MD Pre Op Diagnosis: Anemia, unspecified Patient Data Age: 35 Gender: M Height: 1.83 m Weight: 88.7 kg Allergies Allergy/AdvReac Type Severity Reaction Status Date / Time No Known Allergies Allergy Verified 06/15/25 09:17 Home Medications ?Medication ?Instructions ?Recorded ?Confirmed ?Type pantoprazole 40 mg tablet,delayed 40 mg PO DAILY 05/30/25 06/15/25 History release sertraline 100 mg tablet 100 mg PO DAILY 05/30/25 06/15/25 History metoclopramide HCl 10 mg tablet 5 mg PO TID nausea and vomiting 06/04/25 06/15/25 History Patient hx anesthesia problems: post op nausea/vomiting Family hx anesthesia problems: post op nausea/vomiting Results Review: All pre-operative results and documents have been reviewed as part of the pre-operative evaluation. [facility] Past Medical History Medical History Healthy adult male Surgical History Surgical History No history of previous surgery Social History Social History Smoking status: Never smoker Substance use type: does not use Living arrangements: with family Spiritual care concerns: No Anes - Eval Final PreProcedure Day of Procedure 06/15/25 09:41 Heart: regular rate and rhythm Lungs: clear to auscultation Airway: Mallampati scale class II Neurological: alert and oriented Last oral intake: >/= 8 hours ASA classification: II Anesthetic plan: proceed Anesthesia type and monitoring: monitored anesthesia care Results Review: All pre-operative results and documents have been reviewed as part of the pre-operative evaluation. Informed Consent: The patient's anesthetic plan and its attendant risks and benefits were discussed with the patient/family/POA. Questions were solicited and answers provided to the satisfaction of the patient/family/POA.
[2025-06-15] MEDS: LACTATED RINGERS 1,000 ML 150 ML IV CONT (09:42)
--- NOTE | 2025-06-15 10:25 | PM.IMHP ---
H&P: HPI History of Present Illness Date/Time: 06/15/25 10:25 Chief Complaint: Abdominal discomfort Narrative: This patient is referred for EGD. He has a diagnosis of gastroparesis. Review of Systems Review of Systems: All systems reviewed & are unremarkable except as noted in HPI and below PMFSH Past Medical History Medical History Healthy adult male Surgical History Surgical History No history of previous surgery Social History Social History Smoking status: Never smoker Substance use type: does not use Living arrangements: with family Spiritual care concerns: No Meds Home Medications and Allergies Home Medications ?Medication ?Instructions ?Recorded ?Confirmed ?Type pantoprazole 40 mg tablet,delayed 40 mg PO DAILY 05/30/25 06/15/25 History release sertraline 100 mg tablet 100 mg PO DAILY 05/30/25 06/15/25 History metoclopramide HCl 10 mg tablet 5 mg PO TID nausea and vomiting 06/04/25 06/15/25 History Allergies Allergy/AdvReac Type Severity Reaction Status Date / Time No Known Allergies Allergy Verified 06/15/25 09:17 Exam Const: General: cooperative and healthy appearing Resp: Effort & Inspection: normal respiratory effort and able to speak in complete sentences Auscultation: clear to auscultation bilaterally Cardio: Rate: regular rate Rhythm: regular rhythm GI: Inspection: normal to inspection GI Palp: No No hepatosplenomegaly present Auscultation: normal bowel sounds Rectal Exam: deferred Skin: General skin exam: normal color Psych: Appearance: grossly normal Mental Status: mental status grossly normal Assessment and Plan Assessment and plan (1) Abdominal pain: Code(s): R10.9 - Unspecified abdominal pain Status: Acute Assessment and Plan: The patient is deemed a good candidate for the procedure. Consent signed. Will proceed.
--- NOTE | 2025-06-15 10:31 | WPDANESPN ---
Anes - Prog Note Post-Op Date/Time: 06/15/25 10:31 Pain Score (VAS): no Patient Feedback: Patient satisfied with anesthetic care.
--- NOTE | 2025-06-15 10:50 | SUR.OPER ---
EGD: [id number] COLON: Start 1052
[2025-06-15 11:13] VITALS: BP 125/82; PULSE 111; RESP 15; O2SAT 99
[2025-06-15 11:16] VITALS: BP 123/80; PULSE 77; RESP 15; O2SAT 100
--- NOTE | 2025-06-15 11:17 | WPDANESPN ---
Anes - Prog Note Post-Op Date/Time: 06/15/25 11:17 Vital Signs: Last Vital Signs Pulse 111 H 06/15/25 11:13 Resp 15 06/15/25 11:13 BP 125/82 06/15/25 11:13 Pulse Ox 99 06/15/25 11:13 O2 Del Method Room Air 06/15/25 11:13 Pain Score (VAS): no I/O: Intake & Output 06/14/25 06/15/25 06/15/25 23:59 07:59 15:59 Intake Total 0 Balance 0 Patient Feedback: Patient satisfied with anesthetic care.
[2025-06-15 11:26] VITALS: BP 122/81; PULSE 78; RESP 15; O2SAT 100
== END 2025-06-15 11:45 | disposition home or self-care (01) ==
PROVIDERS: PCP Emergency Medicine; Visit Provider Internal Medicine Gastroenterology
PROC: 0DJ08ZZ Inspection of Upper Intestinal Tract, Via Natural or Artificial Opening Endoscopic (ICD-10-PCS; CPT 45378; principal; 2025-06-15 10:30)
DX: R10.84 Generalized abdominal pain (principal); K44.9 Diaphragmatic hernia without obstruction or gangrene; K29.70 Gastritis, unspecified, without bleeding
CPT/HCPCS: 45378; 43239

== ENCOUNTER 2025-06-15 11:33 | Outpatient (NON) | payer OTHER, SELFPAY ==
--- NOTE | 2025-06-15 | S_PTH ---
PATIENT: Edward Rogel LOC: [facility] U#:[id number] AGE/SX: 35/M ROOM: RE06/15/[address]: Alonso Pathak MD : 1990 BED: DIS: 06/15/2025 SPEC #: [id number] RECD: 06/18/25 11:37 STATUS: KVNG REQ #: [id number] BARRERA: 06/15/25 00:[address]: Alonso Pathak DEPT: [facility] Surgical RECD BY: Anand Spivey ENTERED: 06/18/25 11:38 SP TYPE: Surgical OTHR DR: Lenard Alves MD Tissues: A - Gastric Biopsy B - Gastric Biopsy Procedures: Hematoxylin and Eosin Stain Gross and Microscopic Level 4
--- OUTSIDE RECORDS SUMMARY | 2025-06-18 13:51 | XMS_ITS | Clinical Summary ---
Author Organization [facility] Address [address] [place] [address] Care Team Providers Care Painting Worker Name Role Phone Unavailable Primary Care Provider [...] 3-dose SCD M series) 2016 COVID-19 Vaccine (2024-2 6 season) 2025 Influenza Adult (#1) 2025 Hepatitis A Vaccines Aged Out No long er eligible based on patient's age to complete this topic Meningococcal B Vaccine Aged Out No l [...]
--- OUTSIDE RECORDS SUMMARY | 2025-06-18 13:51 | XMS_ITS | Clinical Summary ---
Author Organization [facility] Address [address] [facility] [address] [facility] [place] [address] Care Team Providers Care Veterinary Technician Name Role Phone Lenard Alves Primary Care Provider [phone] OsmarKvng chavez Shabana PAC Unavailable [phone] Allergies No known active allergies Medications famotidine [...] patient's age to complete this topic Insurance [employer] Care Teams Veterinary Technician Relationship Specialty Start Date End Date Long Lenard [address] [address] PCP - General Family Medicine 01/17/24 Kvng Prasad PAC [address] [address] Physician Venue Attendant Physician Venue Attendant 01/17/24
--- OUTSIDE RECORDS SUMMARY | 2025-06-18 13:51 | XMS_ITS | Clinical Summary ---
Author Organization [facility] Address [address] [place] [address] Care Team Providers Care Nursing Student Name Role Phone Unknown, Notinfile Primary Care [...] (06/11/2019): Added automatically from request for surgery [id number] Diarrhea of presumed infectious origin 9 Assessment & Plan (07/17/2019 1:23 PM SAMPLER PICKUP): Have reviewed with him all the labs [...] in the and spent 6 mos in [employer] 04/01-10/03. C/o morning urgency with numerous loose stools and also less severe in the afternoon. No nocturnal. Living and eating on the [employer]. Brought in labs and blood all [...] on file Legal Sex Male 6:45 AM SAMPLER PICKUP Gender Identity Not on file Sexual Orientation Not on file Last Filed Vital Signs Vital Sign Reading Time Taken Comments Blood Pressure 130/80 06/22/2020 10:08 AM SAMPLER PICKUP Pulse 75 06/22/2020 10:09 AM SAMPLER PICKUP righ t Temperature 36.3 C (97.3 F) 06/22/2020 10:08 AM SAMPLER PICKUP Respiratory Rate 16 06/22/2020 10:08 AM SAMPLER PICKUP Oxygen Saturation 97% 06/22/2020 10:09 AM SAMPLER PICKUP right Inhaled Oxygen Concentration - - Weight 90.7 kg (200 lb) 06/22/2020 10:08 AM SAMPLER PICKUP Height 182.9 cm (6') 06/22/2020 10:08 AM SAMPLER PICKUP Body Mass Index 27.12 06/22/2020 10:08 AM SAMPLER PICKUP Plan of Treatment [place] [address] [facility] HMO/PPO Address: [address] [address] [place] [address] [facility] CLAIMS Advance Directives For more information, please contact: [phone] * Full Code (Latest Code Status on File) Date Activated Date Inactivated Comments 07/10/2019 7:53 AM 07/10/2019 2:29 PM * Full Code Date Activated Date Inactivated Comments 07/10/2019 7:53 AM 07/10/2019 7:53 AM Care Teams Nursing Student Relationship Specialty Start Date End Date Unknown, Notinfile PCP - General 07/10/19
== END 2025-06-15 11:34 | disposition home or self-care (01) ==
PROVIDERS: PCP Emergency Medicine; Visit Provider Internal Medicine Gastroenterology
DX: D64.9 Anemia, unspecified (principal)
CPT/HCPCS: 88305